=== PATIENT | male | born 1960 | race Caucasian/White ===

== ENCOUNTER 2017-09-01 12:57 | Emergency (ER) | payer MEDICARE, MEDICAID ==
[~2017-09-01] VITALS: Ht 175.3 cm; Wt 54.3 kg
[~2017-09-01 12:57] MED LIST: A/C/1TAB PO; BUDE0.5A11 IH; CIPR-230 PO; ESOM20CA PO; HYDR-565 PO; IPRA3AMP IH; MULT-1074 PO; ONDA8TAB9 PO; OSC500T PO; SIMV20TA5 PO; THEO300T22 PO; ZOLP10TA5 PO
[2017-09-01 13:34] LABS: BASOPHILS % (AUTO) 0.9 % (0-1); HEMATOCRIT 33.7 % (42.0-52.0); HEMOGLOBIN 11.5 g/dl (14.0-17.9); LYMPHOCYTES # (AUTO) 0.9 X10'3 (1.1-4.8); LYMPHOCYTES % (AUTO) 41.9 % (21-51); MEAN CORPUSCULAR HEMOGLOBIN 30.3 PG (27.0-31.0); MEAN CORPUSCULAR VOLUME 89.2 FL (78-98); MEAN PLATELET VOLUME 8.7 FL (7.4-10.4); MONOCYTES # (AUTO) 0.2 X10'3 (0-0.9); MONOCYTES % (AUTO) 7.7 % (2-12); NEUTROPHILS % (AUTO) 47.5 % (42-75); PLATELET COUNT 63 X10'3 (140-440); RED BLOOD COUNT 3.78 X10'6 (4.70-6.10); WHITE BLOOD COUNT 2.1 X10'3 (4.5-11.0)
[2017-09-01 13:42] LABS: PROTHROMBIN TIME 10.8 SECONDS (9.0-12.0)
[2017-09-01 13:58] LABS: ALANINE AMINOTRANSFERASE 34 U/L (12-78); ALBUMIN 3.6 G/DL (3.4-5.0); ALBUMIN/GLOBULIN RATIO 1.6 (1.1-1.5); ALKALINE PHOSPHATASE 138 IU/L (46-116); ANION GAP 10 (8-16); ASPARTATE AMINO TRANSFERASE 10 U/L (10-37); BILIRUBIN,TOTAL 0.8 MG/DL (0.1-1.0); BLOOD UREA NITROGEN 17 MG/DL (7-18); CHLORIDE 103 MMOL/L (99-107); CREATININE 0.68 MG/DL (0.60-1.10); GLUCOSE 98 MG/DL (70-104); POTASSIUM 4.2 MMOL/L (3.5-5.1); SODIUM 138 MMOL/L (135-145); TOTAL CARBON DIOXIDE 24.7 MMOL/L (24-32); TOTAL PROTEIN 5.9 G/DL (6.4-8.2); eGFR > 90 ML/MIN
[2017-09-01 14:24] LABS: ANISOCYTOSIS 3+; ELLIPTOCYTES FEW; PLATELET ESTIMATE DECREASED; SCHISTOCYTES FEW; TOTAL CELLS COUNTED 100
[2017-09-01] MEDS ORDERED: HYDROmorphone inj. 0.5 MG/0.5 ML DISP.SYRIN IV ONE (15:25)
[2017-09-01] MEDS ORDERED: ondansetron/PF 4mg/2ml inj IV ONE (15:25)
[2017-09-01] MEDS ORDERED: normal saline 1000ml 1,000 ML IV ONE (15:30)
[2017-09-01] MEDS ORDERED: famotidine/PF 10 mg/ml inj IV ONE (15:30)
[2017-09-01] MEDS ORDERED: morphine 4 MG/ML inj SYRINge IV ONE ×2 (15:50→16:35)
[2017-09-01 15:58] VITALS: BP 116/78
[2017-09-01 16:00] LABS: CLARITY,URINE CLEAR (Clear); COLOR,URINE YELLOW (Yellow); GLUCOSE, URINE NEGATIVE (Neg); KETONES,URINE NEGATIVE (Neg); LEUKOCYTE ESTERASE ,URINE NEGATIVE (Neg); NITRITES, URINE NEGATIVE (Neg); OCCULT BLOOD,URINE NEGATIVE (Neg); PROTEIN,URINE TRACE mg/dl (Neg); UROBILINOGEN,URINE 0.2 E.U/dL (0.2-1.0)
[2017-09-01 16:10] LABS: UA COLLECTION TYPE URINAL
[2017-09-01 16:13] LABS: BACTERIA,URINE NONE SEEN /HPF (Neg); CAL OXALATE CRYSTALS FEW /HPF (NEGATIVE); RBC,URINE 0-2 /HPF (0-2); SQUAMOUS EPITHELIAL CELL,UR FEW /LPF (FEW); WBC,URINE 0-4 /HPF (0-4)
[2017-09-01 16:14] LABS: HYALINE CASTS 0-3 /LPF (NEGATIVE); MUCUS STRANDS MODERATE /LPF (Neg)
[2017-09-01] MEDS ORDERED: HYDROcodone/acetaminophen 5mg/325mg tablet PO ONE (16:35)
[2017-09-02] MEDS ORDERED: OXYC-134 PO (15:39)
[2017-09-02] MEDS ORDERED: ONDA4TAB12 PO (15:39)
== END 2017-09-01 17:03 | disposition home or self-care (01) ==
LOC: ER 12:57
DX: C25.9 Malignant neoplasm of pancreas, unspecified (principal); D61.818 Other pancytopenia; M54.5 Low back pain; J44.9 Chronic obstructive pulmonary disease, unspecified; K21.9 Gastro-esophageal reflux disease without esophagitis; Z98.890 Other specified postprocedural states; Z91.012 Allergy to eggs; Z79.899 Other long term (current) drug therapy
CPT/HCPCS: 36415; 72100; 80053; 81001; 85025; 85610; 96374; 96375; 96376; 99285; J2270; J2405; J3490; J7030